=== PATIENT | female | born 1950 | race Caucasian/White ===

== ENCOUNTER → 2017-02-07 | Outpatient (CLI) | payer OTHER ==
--- NOTE | ~2017-02-07 | NDGEN ---
PATIENT'S NAME: Stefanie FLORIAN [facility] AGE: 66 Y [address] ROOM: [place] [address] LOCATION: [facility] ADMIT DATE: 02/07/2017 [facility] DISCHARGE DATE: FAMILY PHYSICIAN: Eliud Pena MD ATTENDING PHYSICIAN: Eliud Pena PROCEDURE: NERVE CONDUCTION STUDY OF THE BILATERAL UPPER EXTREMITIES. DATE OF PROCEDURE: 02/07/2017 Diagnosis: R/O median neuropathy at the wrist. INDICATIONS: For this 66-year-old female patient who has pain at the left base of the thumb at the wrist with some radiation of pain to the thenar eminence. However, there is no numbness or tingling into the distal aspect of the hands and nothing to suggest a median neuropathy based upon her focal pain at the wrist. The patient was actually here doing sewing that involves extensive pronation and supination of her hands which is likely exacerbating local pain there. Nerve conduction studies included sensory and motor nerve stimulations of the median and ulnar nerves. There were normal motor onset latencies, durations, amplitudes, and nerve conduction velocity seen in the median and ulnar motor nerves. There were normal peak onset latencies seen in the median and ulnar sensory nerves with normal amplitudes and normal nerve conduction velocities. The patient did not require a needle EMG based upon the clear focal pain at the distal aspect of the radius/wrist and the base of the thumb with normal power. IMPRESSION: There is no evidence to support a median neuropathy at the wrist or any other neuropathy of the bilateral upper extremities. Kenalog will be given locally into the area of the left base of the thumb at the wrist based upon the contention that this is likely a tendinitis due to overuse of the hand in pronation and supination. The patient was recommended not to perform this task of overuse of her wrist and to rest it with time. MD RAYMON FLETCHER/jal /[id number] dtt: 02/08/17 1429 , MADIE SÁNCHEZd: 02/07/17 1747
== END | disposition disaster alternative care site (69) ==
LOC: GNEU 14:35
DX: R29.898 Other symptoms and signs involving the musculoskeletal system (principal)